=== PATIENT | male | born 1945 | race Caucasian/White ===

== ENCOUNTER 2021-10-17 08:47 | Inpatient (IN) ==
[2021-10-17] MEDS ORDERED: D5% in Water 1,000 ML IVC PRN (21:10)
[2021-10-17] MEDS ORDERED: *HR* Dextrose 50 % in Water (Syg) 50 ML SYRINGE IVP PRN (21:10)
[2021-10-17] MEDS ORDERED: Dextrose Gel 15 GM/37.5 ML TUBE PO PRN ×2 (21:10)
[2021-10-17] MEDS: Pyridostigmine Br 60 MG TABLET PO SCH (23:00)
[2021-10-17] MEDS: Apixaban 5 MG TABLET PO SCH (23:00)
[2021-10-18 06:46] LABS: Basophils % 0.2 %; Eosinophils # 0.1 K/mcL (0.0-0.6); Eosinophils % 3.1 %; Hematocrit 28.7 % (37.5-50.1); Immature Granulocytes % 0.4 % (0-4); Lymphocytes # 0.9 K/mcL (0.6-4.6); Lymphocytes % 20.5 %; Mean Corpuscular HGB Conc 31.4 g/dL (31.6-35.5); Mean Corpuscular Hemoglobin 28.1 pg (28.0-33.3); Mean Corpuscular Volume 89.7 fL (83.0-100.0); Mean Platelet Volume 10.8 fL (9.4-12.4); Monocytes # 0.4 K/mcL (0.0-1.3); Monocytes % 8.6 %; Platelet Count 290 K/mcL (140-400); Red Cell Distribution Width 16.1 % (11.5-14.5); Segmented Neutrophils % 67.2 %; White Blood Count 4.5 K/mcL (4.3-11.1)
[2021-10-18 06:47] LABS: BUN/Creatinine Ratio 23 (6-26); Blood Urea Nitrogen 16 mg/dL (8-23); Calcium 8.3 mg/dL (8.6-10.3); Carbon Dioxide 24 mEq/L (23-29); Chloride 114 mEq/L (98-107); Glucose 86 mg/dL (70-105); Osmolality,Calculated 300 (280-300); Potassium 3.8 mEq/L (3.5-5.1); Sodium 145 mEq/L (136-145); eGFR For African Americans > 60 (> 60); eGFR For Non-African Americans > 60 (> 60)
[2021-10-18] MEDS: Insulin LISPRO 300 UNITS/3 ML VIAL SUBQ SCH ×4 (07:38→21:30)
[2021-10-18] MEDS ORDERED: Furosemide 20 MG TABLET PO SCH (09:00)
[2021-10-18] MEDS: Insulin DETEMIR 100 UNIT/ML X5UNITS SUBQ SCH ×2 (10:20→21:30)
[2021-10-18] MEDS: Aspirin 81 MG TAB.CHEW PO SCH (10:21)
[2021-10-18] MEDS: amLODIPine 5 MG TABLET PO SCH (10:21)
[2021-10-18] MEDS: *HR* SitaGLIPtin 100 MG TABLET PO SCH (10:21)
[2021-10-18] MEDS: Cholecalciferol (D-3) 1,000 UNIT (25MCG) TABLET PO SCH (10:21)
[2021-10-18] MEDS: Apixaban 5 MG TABLET PO SCH ×2 (10:21→21:29)
[2021-10-18] MEDS: Pyridostigmine Br 60 MG TABLET PO SCH ×4 (10:21→21:29)
[2021-10-18] MEDS: carvediloL 25 MG TABLET PO SCH ×2 (10:21→17:31)
[2021-10-18] MEDS: allopurinoL 100 MG TABLET PO SCH (10:21)
[2021-10-18] MEDS: 0.9 % Sodium Chloride 1,000 ML IVC SCH (14:14)
[2021-10-19] MEDS: 0.9 % Sodium Chloride 1,000 ML IVC SCH (01:00)
[2021-10-19] MEDS ORDERED: Acetaminophen 325 MG TABLET PO ONE (04:24)
[2021-10-19] MEDS: Insulin LISPRO 300 UNITS/3 ML VIAL SUBQ SCH ×4 (08:01→22:20)
[2021-10-19] MEDS: Insulin DETEMIR 100 UNIT/ML X5UNITS SUBQ SCH ×2 (09:15→22:20)
[2021-10-19] MEDS ORDERED: Acetaminophen 325 MG TABLET PO PRN (09:31)
[2021-10-19] MEDS: *HR* SitaGLIPtin 100 MG TABLET PO SCH (09:57)
[2021-10-19] MEDS: Pyridostigmine Br 60 MG TABLET PO SCH ×4 (09:57→22:37)
[2021-10-19] MEDS: amLODIPine 5 MG TABLET PO SCH (09:57)
[2021-10-19] MEDS: carvediloL 25 MG TABLET PO SCH ×2 (09:57→17:11)
[2021-10-19] MEDS: Aspirin 81 MG TAB.CHEW PO SCH (09:58)
[2021-10-19] MEDS: allopurinoL 100 MG TABLET PO SCH (09:58)
[2021-10-19] MEDS: Apixaban 5 MG TABLET PO SCH ×2 (09:58→22:34)
[2021-10-19] MEDS: Cholecalciferol (D-3) 1,000 UNIT (25MCG) TABLET PO SCH (09:58)
[2021-10-19 11:43] LABS: Basophils % 0.1 %; Eosinophils % 0.1 %; Hematocrit 30.2 % (37.5-50.1); Hemoglobin 9.8 g/dL (12.9-16.9); Immature Granulocytes % 0.4 % (0-4); Lymphocytes # 0.4 K/mcL (0.6-4.6); Lymphocytes % 4.1 %; Mean Corpuscular HGB Conc 32.5 g/dL (31.6-35.5); Mean Corpuscular Hemoglobin 28.7 pg (28.0-33.3); Mean Corpuscular Volume 88.6 fL (83.0-100.0); Mean Platelet Volume 10.7 fL (9.4-12.4); Monocytes # 0.4 K/mcL (0.0-1.3); Monocytes % 4.2 %; Platelet Count 289 K/mcL (140-400); Red Blood Count 3.41 M/mcL (4.19-5.50); Red Cell Distribution Width 16.2 % (11.5-14.5); Segmented Neutrophils % 91.1 %; White Blood Count 9.7 K/mcL (4.3-11.1)
[2021-10-19 11:45] LABS: Neutrophils # 8.8 K/mcL (1.6-8.9)
[2021-10-19 11:57] LABS: BUN/Creatinine Ratio 23 (6-26); Blood Urea Nitrogen 17 mg/dL (8-23); Calcium 8.2 mg/dL (8.6-10.3); Carbon Dioxide 24 mEq/L (23-29); Chloride 115 mEq/L (98-107); Glucose 106 mg/dL (70-105); Osmolality,Calculated 304 (280-300); Potassium 3.7 mEq/L (3.5-5.1); Sodium 146 mEq/L (136-145); eGFR For African Americans > 60 (> 60); eGFR For Non-African Americans > 60 (> 60)
[2021-10-19 13:14] LABS: Albumin 2.7 g/dL (3.5-5.7); Albumin/Globulin Ratio 0.8 (1.1-2.2); Bilirubin,Direct 0.7 mg/dL (0.0-0.2); Bilirubin,Indirect 0.5 mg/dL (0.0-1.0); Bilirubin,Total 1.2 mg/dL (0.3-1.0); Globulin 3.5 g/dL (2.4-3.5); Total Protein 6.2 g/dL (6.4-8.9)
[2021-10-19] MEDS ORDERED: Isovue-370 500 ML BOTTLE IVP ONE (13:19)
[2021-10-19] MEDS ORDERED: 0.9 % Sodium Chloride 1,000 ML IVC SCH (16:30)
[2021-10-19] MEDS: Piperacillin/Tazobactam 3.375 GM in 0.9 % Sodium Chloride Mini Bag 100 ML IVPB SCH (17:08)
[2021-10-20] MEDS: Piperacillin/Tazobactam 3.375 GM in 0.9 % Sodium Chloride Mini Bag 100 ML IVPB SCH ×3 (00:48→16:49)
[2021-10-20 06:22] LABS: Basophils % 0.1 %; Eosinophils % 0.1 %; Hemoglobin 8.8 g/dL (12.9-16.9); Immature Granulocytes % 0.4 % (0-4); Lymphocytes % 15.1 %; Mean Corpuscular HGB Conc 32.6 g/dL (31.6-35.5); Mean Corpuscular Hemoglobin 29.6 pg (28.0-33.3); Mean Corpuscular Volume 90.9 fL (83.0-100.0); Mean Platelet Volume 11.5 fL (9.4-12.4); Monocytes # 0.5 K/mcL (0.0-1.3); Monocytes % 7.2 %; Neutrophils # 5.2 K/mcL (1.6-8.9); Platelet Count 239 K/mcL (140-400); Red Blood Count 2.97 M/mcL (4.19-5.50); Red Cell Distribution Width 16.5 % (11.5-14.5); Segmented Neutrophils % 77.1 %; White Blood Count 6.8 K/mcL (4.3-11.1)
[2021-10-20 06:52] LABS: Alanine Aminotransferase 9 Units/L (7-52); Albumin 2.4 g/dL (3.5-5.7); Albumin/Globulin Ratio 0.7 (1.1-2.2); Alkaline Phosphatase 117 Units/L (34-104); Aspartate Amino Transferase 7 Units/L (13-39); BUN/Creatinine Ratio 24 (6-26); Bilirubin,Total 1.2 mg/dL (0.3-1.0); Blood Urea Nitrogen 22 mg/dL (8-23); Calcium 8.1 mg/dL (8.6-10.3); Carbon Dioxide 26 mEq/L (23-29); Chloride 118 mEq/L (98-107); Globulin 3.4 g/dL (2.4-3.5); Potassium 3.9 mEq/L (3.5-5.1); Sodium 149 mEq/L (136-145); Total Protein 5.8 g/dL (6.4-8.9); eGFR For African Americans > 60 (> 60); eGFR For Non-African Americans > 60 (> 60)
[2021-10-20 07:00] LABS: Glucose 90 mg/dL (70-105); Osmolality,Calculated 311 (280-300)
[2021-10-20] MEDS: Insulin LISPRO 300 UNITS/3 ML VIAL SUBQ SCH ×4 (07:43→20:36)
[2021-10-20] MEDS: Insulin DETEMIR 100 UNIT/ML X5UNITS SUBQ SCH (07:43)
[2021-10-20] MEDS: *HR* SitaGLIPtin 100 MG TABLET PO SCH (08:32)
[2021-10-20] MEDS: Apixaban 5 MG TABLET PO SCH ×2 (08:40→20:36)
[2021-10-20] MEDS: Aspirin 81 MG TAB.CHEW PO SCH (08:40)
[2021-10-20] MEDS: Cholecalciferol (D-3) 1,000 UNIT (25MCG) TABLET PO SCH (08:40)
[2021-10-20] MEDS: Pyridostigmine Br 60 MG TABLET PO SCH ×4 (08:40→20:36)
[2021-10-20] MEDS: allopurinoL 100 MG TABLET PO SCH (08:40)
[2021-10-20] MEDS: amLODIPine 5 MG TABLET PO SCH (10:21)
[2021-10-20] MEDS: carvediloL 25 MG TABLET PO SCH ×2 (10:39→16:49)
[2021-10-21] MEDS: Piperacillin/Tazobactam 3.375 GM in 0.9 % Sodium Chloride Mini Bag 100 ML IVPB SCH ×3 (01:15→18:05)
[2021-10-21 05:02] LABS: Basophils % 0.2 %; Eosinophils # 0.1 K/mcL (0.0-0.6); Eosinophils % 2.3 %; Hematocrit 25.1 % (37.5-50.1); Hemoglobin 8.5 g/dL (12.9-16.9); Immature Granulocytes % 0.4 % (0-4); Lymphocytes # 0.9 K/mcL (0.6-4.6); Lymphocytes % 18.5 %; Mean Corpuscular HGB Conc 33.9 g/dL (31.6-35.5); Mean Corpuscular Hemoglobin 32.2 pg (28.0-33.3); Mean Corpuscular Volume 95.1 fL (83.0-100.0); Mean Platelet Volume 11.3 fL (9.4-12.4); Monocytes # 0.3 K/mcL (0.0-1.3); Monocytes % 6.2 %; Neutrophils # 3.5 K/mcL (1.6-8.9); Platelet Count 221 K/mcL (140-400); Red Blood Count 2.64 M/mcL (4.19-5.50); Red Cell Distribution Width 17.2 % (11.5-14.5); Segmented Neutrophils % 72.4 %; White Blood Count 4.9 K/mcL (4.3-11.1)
[2021-10-21 05:18] LABS: Alanine Aminotransferase 8 Units/L (7-52); Albumin 2.3 g/dL (3.5-5.7); Albumin/Globulin Ratio 0.7 (1.1-2.2); Alkaline Phosphatase 106 Units/L (34-104); Aspartate Amino Transferase 6 Units/L (13-39); BUN/Creatinine Ratio 25 (6-26); Blood Urea Nitrogen 23 mg/dL (8-23); Calcium 8.2 mg/dL (8.6-10.3); Carbon Dioxide 26 mEq/L (23-29); Chloride 119 mEq/L (98-107); Globulin 3.5 g/dL (2.4-3.5); Glucose 85 mg/dL (70-105); Osmolality,Calculated 315 (280-300); Potassium 3.8 mEq/L (3.5-5.1); Sodium 151 mEq/L (136-145); Total Protein 5.8 g/dL (6.4-8.9); eGFR For African Americans > 60 (> 60); eGFR For Non-African Americans > 60 (> 60)
[2021-10-21] MEDS: Insulin LISPRO 300 UNITS/3 ML VIAL SUBQ SCH ×4 (08:28→19:39)
[2021-10-21] MEDS: Apixaban 5 MG TABLET PO SCH ×2 (08:29→19:38)
[2021-10-21] MEDS: carvediloL 25 MG TABLET PO SCH ×2 (08:30→18:11)
[2021-10-21] MEDS: allopurinoL 100 MG TABLET PO SCH (08:30)
[2021-10-21] MEDS: amLODIPine 5 MG TABLET PO SCH (08:30)
[2021-10-21] MEDS: Cholecalciferol (D-3) 1,000 UNIT (25MCG) TABLET PO SCH (08:31)
[2021-10-21] MEDS: Aspirin 81 MG TAB.CHEW PO SCH (08:31)
[2021-10-21] MEDS: *HR* SitaGLIPtin 100 MG TABLET PO SCH (08:31)
[2021-10-21] MEDS: Pyridostigmine Br 60 MG TABLET PO SCH ×4 (08:31→19:40)
[2021-10-21] MEDS: D5% in Water 1,000 ML IVC SCH ×2 (11:05→21:27)
[2021-10-22] MEDS: Piperacillin/Tazobactam 3.375 GM in 0.9 % Sodium Chloride Mini Bag 100 ML IVPB SCH ×2 (00:16→10:25)
[2021-10-22 04:51] LABS: Hematocrit 24.6 % (37.5-50.1); Hemoglobin 8.7 g/dL (12.9-16.9); Mean Corpuscular HGB Conc 35.4 g/dL (31.6-35.5); Mean Corpuscular Hemoglobin 34.1 pg (28.0-33.3); Mean Corpuscular Volume 96.5 fL (83.0-100.0); Mean Platelet Volume 11.5 fL (9.4-12.4); Platelet Count 201 K/mcL (140-400); Red Blood Count 2.55 M/mcL (4.19-5.50); White Blood Count 3.5 K/mcL (4.3-11.1)
[2021-10-22 05:09] LABS: Alanine Aminotransferase 8 Units/L (7-52); Albumin 2.3 g/dL (3.5-5.7); Albumin/Globulin Ratio 0.7 (1.1-2.2); Alkaline Phosphatase 119 Units/L (34-104); Aspartate Amino Transferase 8 Units/L (13-39); BUN/Creatinine Ratio 20 (6-26); Blood Urea Nitrogen 18 mg/dL (8-23); Calcium 8.2 mg/dL (8.6-10.3); Carbon Dioxide 27 mEq/L (23-29); Chloride 116 mEq/L (98-107); Globulin 3.5 g/dL (2.4-3.5); Glucose 130 mg/dL (70-105); Osmolality,Calculated 306 (280-300); Potassium 3.4 mEq/L (3.5-5.1); Sodium 146 mEq/L (136-145); Total Protein 5.8 g/dL (6.4-8.9); eGFR For African Americans > 60 (> 60); eGFR For Non-African Americans > 60 (> 60)
[2021-10-22] MEDS: amLODIPine 5 MG TABLET PO SCH (10:24)
[2021-10-22] MEDS: *HR* SitaGLIPtin 100 MG TABLET PO SCH (10:24)
[2021-10-22] MEDS: Apixaban 5 MG TABLET PO SCH ×2 (10:24→22:12)
[2021-10-22] MEDS: allopurinoL 100 MG TABLET PO SCH (10:24)
[2021-10-22] MEDS: Aspirin 81 MG TAB.CHEW PO SCH (10:24)
[2021-10-22] MEDS: carvediloL 25 MG TABLET PO SCH ×2 (10:25→17:00)
[2021-10-22] MEDS: Cholecalciferol (D-3) 1,000 UNIT (25MCG) TABLET PO SCH (10:25)
[2021-10-22] MEDS: Pyridostigmine Br 60 MG TABLET PO SCH ×4 (10:25→22:12)
[2021-10-22] MEDS: Insulin LISPRO 300 UNITS/3 ML VIAL SUBQ SCH ×4 (10:26→22:13)
[2021-10-23 04:34] LABS: Hemoglobin 8.9 g/dL (12.9-16.9); Mean Corpuscular Hemoglobin 31.3 pg (28.0-33.3); Mean Corpuscular Volume 95.1 fL (83.0-100.0); Mean Platelet Volume 10.8 fL (9.4-12.4); Platelet Count 197 K/mcL (140-400); Red Blood Count 2.84 M/mcL (4.19-5.50); Red Cell Distribution Width 16.4 % (11.5-14.5); White Blood Count 3.5 K/mcL (4.3-11.1)
[2021-10-23 04:55] LABS: Alanine Aminotransferase 11 Units/L (7-52); Albumin 2.4 g/dL (3.5-5.7); Albumin/Globulin Ratio 0.7 (1.1-2.2); Alkaline Phosphatase 148 Units/L (34-104); Aspartate Amino Transferase 13 Units/L (13-39); BUN/Creatinine Ratio 17 (6-26); Blood Urea Nitrogen 14 mg/dL (8-23); Calcium 8.2 mg/dL (8.6-10.3); Carbon Dioxide 26 mEq/L (23-29); Chloride 116 mEq/L (98-107); Globulin 3.5 g/dL (2.4-3.5); Glucose 101 mg/dL (70-105); Magnesium 1.5 mg/dL (1.6-2.6); Osmolality,Calculated 305 (280-300); Potassium 3.6 mEq/L (3.5-5.1); Sodium 147 mEq/L (136-145); Total Protein 5.9 g/dL (6.4-8.9); eGFR For African Americans > 60 (> 60); eGFR For Non-African Americans > 60 (> 60)
[2021-10-23] MEDS: Insulin LISPRO 300 UNITS/3 ML VIAL SUBQ SCH ×4 (09:58→21:52)
[2021-10-23] MEDS: carvediloL 25 MG TABLET PO SCH ×2 (10:01→17:55)
[2021-10-23] MEDS: allopurinoL 100 MG TABLET PO SCH (10:02)
[2021-10-23] MEDS: Pyridostigmine Br 60 MG TABLET PO SCH ×4 (10:02→21:43)
[2021-10-23] MEDS: *HR* SitaGLIPtin 100 MG TABLET PO SCH (10:02)
[2021-10-23] MEDS: Cholecalciferol (D-3) 1,000 UNIT (25MCG) TABLET PO SCH (10:02)
[2021-10-23] MEDS: amLODIPine 5 MG TABLET PO SCH (10:02)
[2021-10-23] MEDS: Aspirin 81 MG TAB.CHEW PO SCH (10:02)
[2021-10-23] MEDS: Apixaban 5 MG TABLET PO SCH ×2 (10:03→21:43)
[2021-10-23] MEDS ORDERED: D5% in Lactated Ringers 1,000 ML IVC SCH (15:30)
[2021-10-23] MEDS: D5% in Water 1,000 ML IVC SCH (17:56)
[2021-10-24] MEDS: D5% in Water 1,000 ML IVC SCH ×2 (03:36→17:54)
[2021-10-24] MEDS: Cholecalciferol (D-3) 1,000 UNIT (25MCG) TABLET PO SCH (08:15)
[2021-10-24] MEDS: carvediloL 25 MG TABLET PO SCH ×2 (08:16→17:53)
[2021-10-24] MEDS: Aspirin 81 MG TAB.CHEW PO SCH (08:16)
[2021-10-24] MEDS: Apixaban 5 MG TABLET PO SCH ×2 (08:16→21:30)
[2021-10-24] MEDS: Pyridostigmine Br 60 MG TABLET PO SCH ×4 (08:16→21:30)
[2021-10-24] MEDS: *HR* SitaGLIPtin 100 MG TABLET PO SCH (08:16)
[2021-10-24] MEDS: allopurinoL 100 MG TABLET PO SCH (08:16)
[2021-10-24] MEDS: amLODIPine 5 MG TABLET PO SCH (08:16)
[2021-10-24] MEDS: Insulin LISPRO 300 UNITS/3 ML VIAL SUBQ SCH ×4 (08:26→21:31)
[2021-10-25] MEDS: D5% in Water 1,000 ML IVC SCH ×2 (04:58→16:29)
[2021-10-25] MEDS: Cholecalciferol (D-3) 1,000 UNIT (25MCG) TABLET PO SCH (09:35)
[2021-10-25] MEDS: Aspirin 81 MG TAB.CHEW PO SCH (09:35)
[2021-10-25] MEDS: carvediloL 25 MG TABLET PO SCH ×2 (09:36→16:23)
[2021-10-25] MEDS: Pyridostigmine Br 60 MG TABLET PO SCH ×4 (09:36→21:35)
[2021-10-25] MEDS: amLODIPine 5 MG TABLET PO SCH (09:36)
[2021-10-25] MEDS: Apixaban 5 MG TABLET PO SCH ×2 (09:36→21:35)
[2021-10-25] MEDS: *HR* SitaGLIPtin 100 MG TABLET PO SCH (09:36)
[2021-10-25] MEDS: allopurinoL 100 MG TABLET PO SCH (09:36)
[2021-10-25] MEDS: Insulin LISPRO 300 UNITS/3 ML VIAL SUBQ SCH ×4 (09:37→21:51)
[2021-10-25 09:57] LABS: Alanine Aminotransferase 14 Units/L (7-52); Albumin 2.4 g/dL (3.5-5.7); Albumin/Globulin Ratio 0.7 (1.1-2.2); Alkaline Phosphatase 141 Units/L (34-104); Aspartate Amino Transferase 11 Units/L (13-39); BUN/Creatinine Ratio 12 (6-26); Bilirubin,Total 0.8 mg/dL (0.3-1.0); Blood Urea Nitrogen 9 mg/dL (8-23); Calcium 8.1 mg/dL (8.6-10.3); Carbon Dioxide 24 mEq/L (23-29); Chloride 109 mEq/L (98-107); Globulin 3.4 g/dL (2.4-3.5); Glucose 142 mg/dL (70-105); Magnesium 1.4 mg/dL (1.6-2.6); Osmolality,Calculated 287 (280-300); Potassium 3.6 mEq/L (3.5-5.1); Sodium 138 mEq/L (136-145); Total Protein 5.8 g/dL (6.4-8.9); eGFR For African Americans > 60 (> 60); eGFR For Non-African Americans > 60 (> 60)
[2021-10-25 10:04] LABS: Hematocrit 26.4 % (37.5-50.1); Hemoglobin 8.5 g/dL (12.9-16.9); Mean Corpuscular HGB Conc 32.2 g/dL (31.6-35.5); Mean Corpuscular Volume 93.3 fL (83.0-100.0); Mean Platelet Volume 11.8 fL (9.4-12.4); Platelet Count 157 K/mcL (140-400); Red Blood Count 2.83 M/mcL (4.19-5.50); Red Cell Distribution Width 15.9 % (11.5-14.5); White Blood Count 4.1 K/mcL (4.3-11.1)
[2021-10-25] MEDS ORDERED: D5% in Water 1,000 ML IVC PRN (16:56)
[2021-10-26] MEDS: D5% in Water 1,000 ML IVC SCH (02:24)
[2021-10-26] MEDS: *HR* Enoxaparin 100 MG/ML SYRINGE SQ SCH ×2 (05:24→16:41)
[2021-10-26] MEDS: Pyridostigmine Br 60 MG TABLET PO SCH ×4 (09:57→22:55)
[2021-10-26] MEDS: allopurinoL 100 MG TABLET PO SCH (09:57)
[2021-10-26] MEDS: amLODIPine 5 MG TABLET PO SCH (09:57)
[2021-10-26] MEDS: carvediloL 25 MG TABLET PO SCH ×2 (09:58→16:33)
[2021-10-26] MEDS: *HR* SitaGLIPtin 100 MG TABLET PO SCH (09:59)
[2021-10-26] MEDS: Insulin LISPRO 300 UNITS/3 ML VIAL SUBQ SCH ×4 (10:36→22:55)
[2021-10-26] MEDS ORDERED: Aspirin 81 MG TAB.CHEW PO SCH (16:00)
[2021-10-26] MEDS: Cholecalciferol (D-3) 1,000 UNIT (25MCG) TABLET PO SCH ×2 (16:34→16:40)
[2021-10-27] MEDS ORDERED: D5% in Water 1,000 ML IVC SCH (01:45)
[2021-10-27] MEDS: *HR* Enoxaparin 100 MG/ML SYRINGE SQ SCH (05:59)
[2021-10-27 07:08] VITALS: BP 114/68; PULSE 66; RESP 17; TEMP 97.9; O2SAT 96
[2021-10-27] MEDS: Insulin LISPRO 300 UNITS/3 ML VIAL SUBQ SCH ×2 (09:20→13:38)
[2021-10-27] MEDS: allopurinoL 100 MG TABLET PO SCH (09:30)
[2021-10-27] MEDS: carvediloL 25 MG TABLET PO SCH (09:30)
[2021-10-27] MEDS: Pyridostigmine Br 60 MG TABLET PO SCH ×2 (09:30→13:40)
[2021-10-27] MEDS: amLODIPine 5 MG TABLET PO SCH (09:30)
[2021-10-27] MEDS: *HR* SitaGLIPtin 100 MG TABLET PO SCH (09:30)
[2021-10-27 10:06] LABS: Hematocrit 28.4 % (37.5-50.1); Hemoglobin 9.2 g/dL (12.9-16.9); Mean Corpuscular HGB Conc 32.4 g/dL (31.6-35.5); Mean Corpuscular Hemoglobin 29.1 pg (28.0-33.3); Mean Corpuscular Volume 89.9 fL (83.0-100.0); Mean Platelet Volume 11.5 fL (9.4-12.4); Platelet Count 159 K/mcL (140-400); Red Blood Count 3.16 M/mcL (4.19-5.50); Red Cell Distribution Width 15.6 % (11.5-14.5); White Blood Count 4.1 K/mcL (4.3-11.1)
[2021-10-27 10:23] LABS: BUN/Creatinine Ratio 8 (6-26); Blood Urea Nitrogen 6 mg/dL (8-23); Calcium 8.5 mg/dL (8.6-10.3); Carbon Dioxide 27 mEq/L (23-29); Chloride 107 mEq/L (98-107); Glucose 129 mg/dL (70-105); Magnesium 1.6 mg/dL (1.6-2.6); Osmolality,Calculated 285 (280-300); Potassium 3.8 mEq/L (3.5-5.1); Sodium 138 mEq/L (136-145); eGFR For African Americans > 60 (> 60); eGFR For Non-African Americans > 60 (> 60)
[2021-10-27 10:41] LABS: INR 1.7; Prothrombin Time 18.9 Seconds (9.4-12.1)
[2021-10-27 10:44] LABS: Activated Partial Thrombo Time 45.5 Seconds (26.0-36.0)
== END 2021-10-27 13:49 | disposition short-term general hospital (02) | DRG 444 ==
LOC: INPGRE 18:02
PROVIDERS: ADMIT Family Medicine; ATTEND Family Medicine

== ENCOUNTER 2021-10-29 17:59 | Inpatient (IN) ==
[2021-10-29] MEDS ORDERED: *HR* Dextrose 50 % in Water (Syg) 50 ML SYRINGE IVP PRN (18:10)
[2021-10-29] MEDS ORDERED: D5% in Water 1,000 ML IVC PRN (18:10)
[2021-10-29] MEDS ORDERED: Dextrose Gel 15 GM/37.5 ML TUBE PO PRN ×2 (18:10)
[2021-10-29] MEDS: Apixaban 5 MG TABLET PO SCH (20:50)
[2021-10-29] MEDS: carvediloL 25 MG TABLET PO SCH (20:50)
[2021-10-29] MEDS: Pyridostigmine Br 60 MG TABLET PO SCH (20:50)
[2021-10-30] MEDS: Insulin LISPRO 300 UNITS/3 ML VIAL SUBQ SCH ×4 (00:25→19:01)
[2021-10-30 06:20] LABS: Basophils % 0.5 %; Eosinophils # 0.2 K/mcL (0.0-0.6); Eosinophils % 4.5 %; Hematocrit 26.1 % (37.5-50.1); Hemoglobin 8.2 g/dL (12.9-16.9); Immature Granulocytes % 0.5 % (0-4); Lymphocytes % 26.2 %; Mean Corpuscular HGB Conc 31.4 g/dL (31.6-35.5); Mean Corpuscular Hemoglobin 28.1 pg (28.0-33.3); Mean Corpuscular Volume 89.4 fL (83.0-100.0); Mean Platelet Volume 11.8 fL (9.4-12.4); Monocytes # 0.3 K/mcL (0.0-1.3); Monocytes % 9.1 %; Neutrophils # 2.2 K/mcL (1.6-8.9); Platelet Count 148 K/mcL (140-400); Red Blood Count 2.92 M/mcL (4.19-5.50); Red Cell Distribution Width 15.7 % (11.5-14.5); Segmented Neutrophils % 59.2 %; White Blood Count 3.7 K/mcL (4.3-11.1)
[2021-10-30 06:44] LABS: BUN/Creatinine Ratio 12 (6-26); Blood Urea Nitrogen 8 mg/dL (8-23); Calcium 8.3 mg/dL (8.6-10.3); Carbon Dioxide 26 mEq/L (23-29); Chloride 107 mEq/L (98-107); Glucose 105 mg/dL (70-105); Osmolality,Calculated 285 (280-300); Potassium 3.7 mEq/L (3.5-5.1); Sodium 138 mEq/L (136-145); eGFR For African Americans > 60 (> 60); eGFR For Non-African Americans > 60 (> 60)
[2021-10-30] MEDS: Cholecalciferol (D-3) 1,000 UNIT (25MCG) TABLET PO SCH (09:09)
[2021-10-30] MEDS: Pyridostigmine Br 60 MG TABLET PO SCH ×4 (09:10→21:35)
[2021-10-30] MEDS: *HR* SitaGLIPtin 100 MG TABLET PO SCH (09:10)
[2021-10-30] MEDS: allopurinoL 100 MG TABLET PO SCH (09:10)
[2021-10-30] MEDS: Aspirin 81 MG TAB.CHEW PO SCH (09:10)
[2021-10-30] MEDS: amLODIPine 5 MG TABLET PO SCH (09:10)
[2021-10-30] MEDS: carvediloL 25 MG TABLET PO SCH ×2 (09:10→21:34)
[2021-10-30] MEDS: Furosemide 20 MG TABLET PO SCH (09:10)
[2021-10-30] MEDS: Apixaban 5 MG TABLET PO SCH ×2 (09:11→21:36)
[2021-10-30] MEDS: Nystatin SUSP 5 ML UD.LIQ PO SCH ×2 (16:45→21:35)
[2021-10-31] MEDS: Insulin LISPRO 300 UNITS/3 ML VIAL SUBQ SCH ×4 (01:15→18:21)
[2021-10-31] MEDS: Aspirin 81 MG TAB.CHEW PO SCH (08:44)
[2021-10-31] MEDS: Furosemide 20 MG TABLET PO SCH (08:44)
[2021-10-31] MEDS: Pyridostigmine Br 60 MG TABLET PO SCH ×4 (08:44→21:55)
[2021-10-31] MEDS: Cholecalciferol (D-3) 1,000 UNIT (25MCG) TABLET PO SCH (08:44)
[2021-10-31] MEDS: carvediloL 25 MG TABLET PO SCH ×2 (08:44→21:55)
[2021-10-31] MEDS: amLODIPine 5 MG TABLET PO SCH (08:45)
[2021-10-31] MEDS: allopurinoL 100 MG TABLET PO SCH (08:45)
[2021-10-31] MEDS: *HR* SitaGLIPtin 100 MG TABLET PO SCH (08:45)
[2021-10-31] MEDS: Apixaban 5 MG TABLET PO SCH ×2 (08:45→21:55)
[2021-10-31] MEDS: Nystatin SUSP 5 ML UD.LIQ PO SCH ×4 (08:46→21:54)
[2021-11-01] MEDS: Insulin LISPRO 300 UNITS/3 ML VIAL SUBQ SCH ×4 (00:10→20:18)
[2021-11-01] MEDS: Cholecalciferol (D-3) 1,000 UNIT (25MCG) TABLET PO SCH (08:04)
[2021-11-01] MEDS: carvediloL 25 MG TABLET PO SCH ×2 (08:04→20:17)
[2021-11-01] MEDS: *HR* SitaGLIPtin 100 MG TABLET PO SCH (08:04)
[2021-11-01] MEDS: Aspirin 81 MG TAB.CHEW PO SCH (08:04)
[2021-11-01] MEDS: allopurinoL 100 MG TABLET PO SCH (08:04)
[2021-11-01] MEDS: Nystatin SUSP 5 ML UD.LIQ PO SCH ×4 (08:04→20:17)
[2021-11-01] MEDS: amLODIPine 5 MG TABLET PO SCH (08:04)
[2021-11-01] MEDS: Apixaban 5 MG TABLET PO SCH ×2 (08:05→20:17)
[2021-11-01] MEDS: Pyridostigmine Br 60 MG TABLET PO SCH ×4 (08:05→20:16)
[2021-11-01] MEDS: Furosemide 20 MG TABLET PO SCH (08:05)
[2021-11-02] MEDS: Insulin LISPRO 300 UNITS/3 ML VIAL SUBQ SCH ×4 (01:43→18:55)
[2021-11-02 06:10] LABS: Hematocrit 26.1 % (37.5-50.1); Hemoglobin 8.1 g/dL (12.9-16.9); Mean Corpuscular Hemoglobin 27.9 pg (28.0-33.3); Mean Platelet Volume 11.8 fL (9.4-12.4); Platelet Count 133 K/mcL (140-400); Red Cell Distribution Width 16.3 % (11.5-14.5); White Blood Count 4.6 K/mcL (4.3-11.1)
[2021-11-02 07:57] LABS: Alanine Aminotransferase 12 Units/L (7-52); Albumin 2.5 g/dL (3.5-5.7); Albumin/Globulin Ratio 0.7 (1.1-2.2); Alkaline Phosphatase 155 Units/L (34-104); Aspartate Amino Transferase 11 Units/L (13-39); BUN/Creatinine Ratio 24 (6-26); Bilirubin,Total 0.5 mg/dL (0.3-1.0); Blood Urea Nitrogen 19 mg/dL (8-23); Calcium 8.3 mg/dL (8.6-10.3); Carbon Dioxide 30 mEq/L (23-29); Chloride 106 mEq/L (98-107); Globulin 3.5 g/dL (2.4-3.5); Glucose 135 mg/dL (70-105); Magnesium 1.6 mg/dL (1.6-2.6); Osmolality,Calculated 294 (280-300); Potassium 4.4 mEq/L (3.5-5.1); Sodium 140 mEq/L (136-145); eGFR For African Americans > 60 (> 60); eGFR For Non-African Americans > 60 (> 60)
[2021-11-02] MEDS: carvediloL 25 MG TABLET PO SCH ×2 (08:53→21:16)
[2021-11-02] MEDS: Apixaban 5 MG TABLET PO SCH ×2 (08:53→21:16)
[2021-11-02] MEDS: amLODIPine 5 MG TABLET PO SCH (08:53)
[2021-11-02] MEDS: Aspirin 81 MG TAB.CHEW PO SCH (08:53)
[2021-11-02] MEDS: Furosemide 20 MG TABLET PO SCH (08:53)
[2021-11-02] MEDS: *HR* SitaGLIPtin 100 MG TABLET PO SCH (08:53)
[2021-11-02] MEDS: Cholecalciferol (D-3) 1,000 UNIT (25MCG) TABLET PO SCH (08:53)
[2021-11-02] MEDS: Pyridostigmine Br 60 MG TABLET PO SCH ×4 (08:54→21:15)
[2021-11-02] MEDS: Nystatin SUSP 5 ML UD.LIQ PO SCH ×4 (08:54→21:23)
[2021-11-02] MEDS: allopurinoL 100 MG TABLET PO SCH (08:54)
[2021-11-03] MEDS: Insulin LISPRO 300 UNITS/3 ML VIAL SUBQ SCH ×4 (00:19→21:45)
[2021-11-03] MEDS: Furosemide 20 MG TABLET PO SCH (08:24)
[2021-11-03] MEDS: Nystatin SUSP 5 ML UD.LIQ PO SCH ×4 (08:24→21:43)
[2021-11-03] MEDS: Cholecalciferol (D-3) 1,000 UNIT (25MCG) TABLET PO SCH (08:24)
[2021-11-03] MEDS: *HR* SitaGLIPtin 100 MG TABLET PO SCH (08:24)
[2021-11-03] MEDS: amLODIPine 5 MG TABLET PO SCH (08:24)
[2021-11-03] MEDS: Pyridostigmine Br 60 MG TABLET PO SCH ×4 (08:25→21:44)
[2021-11-03] MEDS: carvediloL 25 MG TABLET PO SCH ×2 (08:25→21:44)
[2021-11-03] MEDS: Aspirin 81 MG TAB.CHEW PO SCH (08:25)
[2021-11-03] MEDS: allopurinoL 100 MG TABLET PO SCH (08:25)
[2021-11-03] MEDS: Apixaban 5 MG TABLET PO SCH ×2 (08:25→21:44)
[2021-11-03] MEDS: Acetaminophen 325 MG TABLET PO PRN ×2 (09:03→21:44)
[2021-11-04] MEDS: Insulin LISPRO 300 UNITS/3 ML VIAL SUBQ SCH ×4 (00:43→17:30)
[2021-11-04] MEDS: allopurinoL 100 MG TABLET PO SCH (09:50)
[2021-11-04] MEDS: carvediloL 25 MG TABLET PO SCH ×2 (09:51→20:59)
[2021-11-04] MEDS: Aspirin 81 MG TAB.CHEW PO SCH (09:51)
[2021-11-04] MEDS: Pyridostigmine Br 60 MG TABLET PO SCH ×4 (09:51→20:59)
[2021-11-04] MEDS: amLODIPine 5 MG TABLET PO SCH (09:51)
[2021-11-04] MEDS: Apixaban 5 MG TABLET PO SCH ×2 (09:51→20:59)
[2021-11-04] MEDS: Cholecalciferol (D-3) 1,000 UNIT (25MCG) TABLET PO SCH (09:51)
[2021-11-04] MEDS: *HR* SitaGLIPtin 100 MG TABLET PO SCH (09:52)
[2021-11-04] MEDS: Nystatin SUSP 5 ML UD.LIQ PO SCH ×4 (09:52→20:59)
[2021-11-04] MEDS: Furosemide 20 MG TABLET PO SCH (09:52)
[2021-11-04] MEDS: Acetaminophen 325 MG TABLET PO PRN (12:46)
[2021-11-05] MEDS: Insulin LISPRO 300 UNITS/3 ML VIAL SUBQ SCH ×4 (00:46→18:28)
[2021-11-05 05:06] LABS: Basophils % 0.7 %; Eosinophils # 0.3 K/mcL (0.0-0.6); Eosinophils % 6.8 %; Hematocrit 25.2 % (37.5-50.1); Hemoglobin 7.9 g/dL (12.9-16.9); Immature Granulocytes % 0.2 % (0-4); Mean Corpuscular HGB Conc 31.3 g/dL (31.6-35.5); Mean Corpuscular Hemoglobin 28.3 pg (28.0-33.3); Mean Corpuscular Volume 90.3 fL (83.0-100.0); Mean Platelet Volume 12.9 fL (9.4-12.4); Monocytes # 0.3 K/mcL (0.0-1.3); Monocytes % 7.7 %; Neutrophils # 2.5 K/mcL (1.6-8.9); Platelet Count 130 K/mcL (140-400); Red Blood Count 2.79 M/mcL (4.19-5.50); Red Cell Distribution Width 16.5 % (11.5-14.5); Segmented Neutrophils % 60.6 %; White Blood Count 4.1 K/mcL (4.3-11.1)
[2021-11-05 05:23] LABS: Alanine Aminotransferase 14 Units/L (7-52); Albumin 2.6 g/dL (3.5-5.7); Albumin/Globulin Ratio 0.8 (1.1-2.2); Alkaline Phosphatase 146 Units/L (34-104); Aspartate Amino Transferase 13 Units/L (13-39); BUN/Creatinine Ratio 30 (6-26); Bilirubin,Total 0.4 mg/dL (0.3-1.0); Blood Urea Nitrogen 24 mg/dL (8-23); Calcium 8.4 mg/dL (8.6-10.3); Carbon Dioxide 32 mEq/L (23-29); Chloride 105 mEq/L (98-107); Globulin 3.2 g/dL (2.4-3.5); Glucose 158 mg/dL (70-105); Magnesium 1.7 mg/dL (1.6-2.6); Osmolality,Calculated 295 (280-300); Potassium 4.3 mEq/L (3.5-5.1); Sodium 139 mEq/L (136-145); Total Protein 5.8 g/dL (6.4-8.9); eGFR For African Americans > 60 (> 60); eGFR For Non-African Americans > 60 (> 60)
[2021-11-05] MEDS: Aspirin 81 MG TAB.CHEW PO SCH (10:35)
[2021-11-05] MEDS: Cholecalciferol (D-3) 1,000 UNIT (25MCG) TABLET PO SCH (10:35)
[2021-11-05] MEDS: allopurinoL 100 MG TABLET PO SCH (10:35)
[2021-11-05] MEDS: carvediloL 25 MG TABLET PO SCH ×2 (10:35→20:51)
[2021-11-05] MEDS: amLODIPine 5 MG TABLET PO SCH (10:35)
[2021-11-05] MEDS: Furosemide 20 MG TABLET PO SCH (10:36)
[2021-11-05] MEDS: Apixaban 5 MG TABLET PO SCH ×2 (10:36→20:51)
[2021-11-05] MEDS: *HR* SitaGLIPtin 100 MG TABLET PO SCH (10:36)
[2021-11-05] MEDS: Pyridostigmine Br 60 MG TABLET PO SCH ×4 (10:36→20:51)
[2021-11-05] MEDS: Nystatin SUSP 5 ML UD.LIQ PO SCH ×4 (10:36→20:51)
[2021-11-05] MEDS: Acetaminophen 325 MG TABLET PO PRN (17:37)
[2021-11-05 19:25] VITALS: RESP 16
[2021-11-06] MEDS: Insulin LISPRO 300 UNITS/3 ML VIAL SUBQ SCH ×4 (00:51→17:09)
[2021-11-06] MEDS: Nystatin SUSP 5 ML UD.LIQ PO SCH ×4 (09:23→23:08)
[2021-11-06] MEDS: Cholecalciferol (D-3) 1,000 UNIT (25MCG) TABLET PO SCH (09:23)
[2021-11-06] MEDS: Aspirin 81 MG TAB.CHEW PO SCH (09:23)
[2021-11-06] MEDS: Pyridostigmine Br 60 MG TABLET PO SCH ×4 (09:24→23:08)
[2021-11-06] MEDS: Furosemide 20 MG TABLET PO SCH (09:24)
[2021-11-06] MEDS: amLODIPine 5 MG TABLET PO SCH (09:24)
[2021-11-06] MEDS: carvediloL 25 MG TABLET PO SCH ×2 (09:24→23:08)
[2021-11-06] MEDS: allopurinoL 100 MG TABLET PO SCH (09:24)
[2021-11-06] MEDS: Apixaban 5 MG TABLET PO SCH ×2 (09:24→23:08)
[2021-11-06] MEDS: *HR* SitaGLIPtin 100 MG TABLET PO SCH (09:24)
[2021-11-06] MEDS: Acetaminophen 325 MG TABLET PO PRN (16:13)
[2021-11-07] MEDS: Insulin LISPRO 300 UNITS/3 ML VIAL SUBQ SCH ×3 (00:08→13:05)
[2021-11-07 07:41] VITALS: BP 117/69; PULSE 59; TEMP 98.1; O2SAT 100
[2021-11-07] MEDS: Nystatin SUSP 5 ML UD.LIQ PO SCH ×3 (07:58→13:04)
[2021-11-07] MEDS: Aspirin 81 MG TAB.CHEW PO SCH (07:58)
[2021-11-07] MEDS: allopurinoL 100 MG TABLET PO SCH (07:58)
[2021-11-07] MEDS: carvediloL 25 MG TABLET PO SCH (07:59)
[2021-11-07] MEDS: *HR* SitaGLIPtin 100 MG TABLET PO SCH (07:59)
[2021-11-07] MEDS: Apixaban 5 MG TABLET PO SCH (07:59)
[2021-11-07] MEDS: Cholecalciferol (D-3) 1,000 UNIT (25MCG) TABLET PO SCH (07:59)
[2021-11-07] MEDS: Pyridostigmine Br 60 MG TABLET PO SCH ×2 (08:00→13:03)
[2021-11-07] MEDS: Furosemide 20 MG TABLET PO SCH (08:00)
[2021-11-07] MEDS: amLODIPine 5 MG TABLET PO SCH (08:00)
== END 2021-11-07 14:56 | disposition home health service (06) | DRG 640 ==
LOC: INPGRE 18:14
PROVIDERS: ADMIT Family Medicine; ATTEND Family Medicine